=== PATIENT | female | born 1975 | race Caucasian/White ===

== ENCOUNTER 2021-12-31 13:31 | Outpatient (CLI) | payer OTHER, SELFPAY | END 2021-12-31 13:32 | disposition home or self-care (01) | LOC: WOUND 13:31 | PROVIDERS: PCP Family Medicine; Visit Provider Nurse Practitioner Family | DX: L03.115 Cellulitis of right lower limb (principal); L97.222 Non-pressure chronic ulcer of left calf with fat layer exposed | CPT/HCPCS: 99203; J0696 ==

== ENCOUNTER 2021-12-31 15:09 | Outpatient (CLI) | payer OTHER, SELFPAY | END 2021-12-31 15:10 | disposition home or self-care (01) | LOC: LAB 15:10 | PROVIDERS: PCP Family Medicine; Visit Provider Nurse Practitioner Family | DX: L97.222 Non-pressure chronic ulcer of left calf with fat layer exposed (principal); L03.116 Cellulitis of left lower limb; Z72.0 Tobacco use | CPT/HCPCS: 11042; 87070; 87186; 96372; 99203; J0696 ==

== ENCOUNTER 2022-01-07 11:00 | Outpatient (CLI) | payer OTHER, SELFPAY | END 2022-01-07 11:01 | disposition home or self-care (01) | PROVIDERS: PCP Family Medicine; Visit Provider Nurse Practitioner Family | DX: L03.116 Cellulitis of left lower limb (principal); L97.222 Non-pressure chronic ulcer of left calf with fat layer exposed | CPT/HCPCS: 11042 ==

== ENCOUNTER 2022-01-14 13:05 | Outpatient (CLI) | payer OTHER, SELFPAY | END 2022-01-14 13:06 | disposition home or self-care (01) | LOC: WOUND 13:05 | PROVIDERS: PCP Family Medicine; Visit Provider Nurse Practitioner Family | DX: L03.116 Cellulitis of left lower limb (principal); L97.222 Non-pressure chronic ulcer of left calf with fat layer exposed | CPT/HCPCS: 11042 ==

== ENCOUNTER 2022-01-21 13:33 | Outpatient (CLI) | payer OTHER, SELFPAY | END 2022-01-21 13:34 | disposition home or self-care (01) | LOC: WOUND 13:33 | PROVIDERS: PCP Family Medicine; Visit Provider Nurse Practitioner Family | DX: L03.116 Cellulitis of left lower limb (principal); Z72.0 Tobacco use | CPT/HCPCS: 11042 ==

== ENCOUNTER 2022-02-05 13:45 | Outpatient (CLI) | payer OTHER, SELFPAY | END 2022-02-05 13:46 | disposition home or self-care (01) | LOC: WOUND 13:45 | PROVIDERS: PCP Family Medicine; Visit Provider Surgery | DX: L03.116 Cellulitis of left lower limb (principal) | CPT/HCPCS: 97597 ==

== ENCOUNTER 2022-02-11 09:58 | Outpatient (CLI) | payer OTHER, SELFPAY | END 2022-02-11 09:59 | disposition home or self-care (01) | PROVIDERS: PCP Family Medicine; Visit Provider Nurse Practitioner Family | DX: L03.116 Cellulitis of left lower limb (principal); T81.31XA Disruption of external operation (surgical) wound, not elsewhere classified, initial encounter | CPT/HCPCS: 11042 ==

== ENCOUNTER 2022-02-25 13:33 | Outpatient (CLI) | payer OTHER, SELFPAY | END 2022-02-25 13:34 | disposition home or self-care (01) | LOC: WOUND 13:33 | PROVIDERS: PCP Family Medicine; Visit Provider Nurse Practitioner Family | DX: T81.31XA Disruption of external operation (surgical) wound, not elsewhere classified, initial encounter (principal); L97.222 Non-pressure chronic ulcer of left calf with fat layer exposed | CPT/HCPCS: 99212 ==

== ENCOUNTER 2022-10-22 14:30 | Inpatient (IN) | payer OTHER, SELFPAY ==
[2022-10-22 14:36] VITALS: BP 129/86; PULSE 86; RESP 16; TEMP 36.7; O2SAT 97; BMI 22.3
--- NOTE | 2022-10-22 15:02 | ED_ITS ---
HPI - Abdominal Pain General Chief Complaint: Abdominal Pain Stated Complaint: Abdominal pain Time Seen by Provider: 10/22/22 14:31 History of Present Illness HPI narrative: This 47-year-old female comes in with upper epigastric pain that comes and goes over the past couple days. She states that at times the pain is rather severe and then it can go away. Currently she is not feeling any pain. She was at clinic earlier today with the same complaint and did receive a prescription for Prilosec. She has taken 1 of these tablets. There was no lab or imaging studies done at that time. Prior to this she has been in good health. She does not report any nausea or vomiting and is not particularly certain that food is triggering these symptoms. She states that she has not eaten much however partly because of these symptoms. She does not report any fevers. Related Data Home Medications Medication Instructions Recorded Confirmed Prilosec OTC 10/22/22 Tums 10/22/22 albuterol sulfate 90 mcg/actuation 1 - 2 puff inhalation Q6H PRN 10/22/22 10/22/22 aerosol inhaler budesonide-formoterol HFA 160 inhalation 10/22/22 mcg-4.5 mcg/actuation aerosol inhaler (Symbicort) hydrochlorothiazide 50 mg tablet 50 mg PO DAILY 10/22/22 10/22/22 metoprolol succinate 25 mg 25 mg PO DAILY 10/22/22 10/22/22 tablet,extended release 24 hr montelukast 10 mg tablet 10 mg PO QPM 10/22/22 10/22/22 potassium chloride 20 mEq 20 meq PO DAILY 10/22/22 10/22/22 tablet,extended release trazodone 50 mg tablet 100 mg PO QPM PRN 10/22/22 10/22/22 Allergies Allergy/AdvReac Type Severity Reaction Status Date / Time amoxicillin [From Augmentin] AdvReac Vomiting Verified 10/22/22 14:41 clavulanic acid AdvReac Vomiting Verified 10/22/22 14:41 [From Augmentin] Review of Systems Status of ROS Reports: 10 or more systems reviewed and unremarkable except as noted in History and below Narrative Constitutional: No fevers, no weight gain or loss. Eyes: No discharge. No vision changes. HENT: No congestion, no sore throat, no ear pain. Cardiovascular: No chest pain, no palpitations. Respiratory: No shortness of breath, no wheezes, no cough. Gastrointestinal: No vomiting, no diarrhea. Upper epigastric abdominal pain that comes and goes. Genitourinary: No dysuria, no hematuria. Musculoskeletal: Normal range of motion. Skin: No rashes, no pruritis. Neurological: No dizziness, weakness, sensory change, speech change. Endo/Heme/Allergies: No bruising or bleeding. No polydipsia. Pysch: no suicidality, no anxiety, no insomnia. All other systems reviewed and are negative. [facility] Social History Smoking Status: Current every day smoker What tobacco products do you use: cigarettes Do you use any of these nicotine containing products: None How often do you have a drink containing alcohol: 4 or more times a week How many standard drinks containing alcohol do you have on a typical day: 3 or 4 AUDIT-C Alcohol total score: 5 Non-prescribed substance use: denies use Exam Narrative: Exam Narrative: Constitutional: Well-developed, well-nourished, no acute distress. HEENT: Normocephalic, atraumatic. Neck: Normal range of motion. Nontender. Supple. Heart: Regular. No murmurs. Normal rate. Intact distal pulses. Lungs: Clear to auscultation. No chest discomfort. No wheezes, rhonchi, or rales. Abdomen: Normal bowel sounds. Nontender. No rebound tenderness. Genitalia: Deferred. Back: No midline tenderness. Normal range of motion. Extremities: Normal range of motion. No injury. Skin: Intact. No rash. Warm. No erythema or pallor. Neurologic: No altered sensation. No weakness. Alert and oriented. Psychiatric: No suicidality. No anxiety or depression. No insomnia. Nursing notes and vitals signs are reviewed. Const: Vital Signs, click to edit/add: Vital Signs - 24 hr 10/22/22 14:36 10/22/22 17:57 Temperature 98.0 F Pulse Rate [Left P ulse Oximeter] 86 89 Respiratory Rate 16 20 Blood Pressure [Ri ght Upper Arm] 129/86 134/89 Pulse Oximetry 97 98 Oxygen Delivery Me thod Room Air Room Air Course Vital Signs Vital signs: Initial Vital Signs Temperature 98.0 F 10/22/22 14:36 Temperature Source Temporal Artery Scan 10/22/22 14:36 Pulse Rate 86 10/22/22 14:36 Respiratory Rate 16 10/22/22 14:36 Blood Pressure 129/86 10/22/22 14:36 Blood Pressure Mean 100 10/22/22 14:36 Blood Pressure Position Sitting 10/22/22 14:36 Pulse Oximetry 97 10/22/22 14:36 Oxygen Delivery Method Room Air 10/22/22 14:36 Vital Signs Temperature 98.0 F 10/22/22 14:36 Pulse Rate 86 10/22/22 14:36 Respiratory Rate 16 10/22/22 14:36 Blood Pressure 129/86 10/22/22 14:36 Pulse Oximetry 97 10/22/22 14:36 Oxygen Delivery Method Room Air 10/22/22 14:36 Temperature 98.0 F 10/22/22 14:36 Pulse Rate 89 10/22/22 17:57 Respiratory Rate 20 10/22/22 17:57 Blood Pressure 134/89 10/22/22 17:57 Pulse Oximetry 98 10/22/22 17:57 Oxygen Delivery Method Room Air 10/22/22 17:57 MDM - Abdominal Pain MDM Narrative Medical decision making narrative: This patient comes in with intermittent but sometimes severe upper epigastric abdominal pain. I did use bedside ultrasound and saw normal appearing gallbladder. An IV was established and labs are acquired which returned with essentially normal findings. Her electrolytes are a bit off. CT imaging interestingly returns with evidence of a small-bowel obstruction. The patient's symptoms are not classic for an obstruction but clearly there is some evidence of a transition point in the right abdomen. I spoke with the surgeon on-call, Dr. Gamble, who recommends admission into the hospital. She will come to visit her in the emergency department and make these arrangements including if a gastrogaffin small-bowel follow-through study. Lab Data Labs: Lab Results 10/22/22 10/22/22 Range/Units 14:48 15:40 WBC 13.14 H (4.50-11.00) K/uL RBC 4.65 (4.00-5.20) m/uL Hgb 15.4 (12.0-16.0) gm/dL Hct 44.0 (33.0-51.0) % MCV 95 (80-100) fL MCH 33 (26-34) pg MCHC 35 (32-36) gm/dL RDW Coeff of Stephen 11.1 L (11.5-15.5) % Plt Count 476 H (140-440) K/uL Neut % (Auto) 78.2 H (42.0-72.0) % Lymph % (Auto) 14.6 L (20-44) % Vermillion % (Auto) 4.9 (0.0-11.0) % Eos % (Auto) 1.8 (0.0-7.0) % Baso % (Auto) 0.4 (0.0-3.0) % Neut # (Auto) 10.30 H (1.7-7.0) K/uL Lymph # (Auto) 1.90 (0.90-2.90) K/uL [place]illion # (Auto) 0.60 (0.00-0.90) K/UL Eos # (Auto) 0.20 (0.00-0.50) K/uL Baso # (Auto) 0.10 (0.00-0.30) K/uL Sodium 130 L (135-149) mmol/L Potassium 3.2 L (3.6-5.1) mmol/L Chloride 90 L (96-114) mmol/L Carbon Dioxide 26 (20-32) mmol/L BUN 10 (5-24) mg/dL Creatinine 0.7 (0.5-1.5) mg/dL Estimated Creat Clear 93.01 Estimated GFR 107 ml/min Glucose 105 (60-115) mg/dL Calcium 9.7 (8.4-10.6) mg/dL Total Bilirubin 1.1 (0.1-1.5) mg/dL Direct Bilirubin 0.1 (0.0-0.5) mg/dL AST 39 H (12-35) U/L ALT 36 H (4-35) U/L Alkaline Phosphatase 69 (40-150) U/L Total Protein 7.4 (6.0-8.3) g/dL Albumin 4.9 (3.3-5.0) g/dL Lipase 80 (23-300) U/L Urine Color Yellow (Yellow) Urine Appearance Clear (Clear) Urine pH 6.0 (5.0-8.5) Ur Specific Slater 1.025 (1.000-1.030) Urine Protein Negative (Negative) Urine Glucose (UA) Negative (Negative) Urine Ketones 1+ A (Negative) Urine Blood Trace-lysed A (Negative) Urine Nitrite Negative (Negative) Urine Bilirubin Negative (Negative) Urine Urobilinogen 0.2 (0.2-1.0) Ur Leukocyte Esterase Trace A (Negative) Urine RBC 0-2 (0-2) Urine WBC 2-5 (0-5) Ur Squamous Epith Cells Moderate A (None-Few) Urine Bacteria Few A (None) Imaging Data CT scan - abdomen: Radiologist's impression: 1. Mid to distal small bowel obstruction. The point of transition appears to be in the right lower quadrant. A segment of narrowing is noted probably a stricture measuring about 5 centimeters. No intramural air, free-air, or collection. Free fluid in the pelvis is likely reactive to the small bowel obstruction 2. There is a 6.5 millimeter gallbladder abnormality which is probably a polyp. Consider sonography for further characterization at a clinically appropriate time. 3. IUD normally located. Myomatous uterus. Discharge Plan Discharge Clinical Impression: Small bowel obstruction Patient Disposition: Admitted As Inpatient Procedures Ultrasound Biliary exam #1: Anatomical areas examined: gallbladder, long and short axis and common bile duct Indications: RUQ/epigastric pain Exam type: limited abdominal ultrasound; RUQ Impression: normal exam Description/Findings: Normal appearing gallbladder, liver, and right kidney.
[2022-10-22 15:03] LABS: Appearance Urine Clear (Clear); Bilirubin Urine Negative (Negative); Blood Urine Trace-lysed (Negative); Color Urine Yellow (Yellow); Glucose Urine Negative (Negative); Ketones Urine 1+ (Negative); Leukocyte Esterase Urine Trace (Negative); Nitrite Urine Negative (Negative); Protein Urine Negative (Negative); Specific Gravity Urine 1.025 (1.000-1.030); Urobilinogen Urine 0.2 (0.2-1.0)
[2022-10-22 15:10] LABS: Bacteria Urine Few; RBC Urine 0-2 (0-2); Squamous Epithelial Cell Urine Moderate (None-Few)
--- NOTE | 2022-10-22 15:21 | CRLHL7_ITS ---
For Patients: As a result of the 21st Century Cures Act, medical imaging exams and procedure reports are released immediately into your electronic medical record. You may view this report before your referring provider. If you have questions, please contact your health care provider. INDICATION: Epigastric pain that extends down to the waist level COMPARISON: None TECHNIQUE: CT examination of the abdomen and pelvis was performed following the uneventful intravenous administration of 68 cc of Isovue 370. Thin section axial images were obtained from the lung bases through the pubic symphysis. Oral contrast was not administered. Please note that all CT scans at this facility use dose modulation, iterative reconstruction, and/or weight-based dosing when appropriate to reduce radiation dose to as low as reasonably achievable. FINDINGS: LUNG BASES: The lung bases as visualized appear normal.The heart size is normal at the lung bases. LIVER/BILIARY SYSTEM:The liver is normal in size and configuration. There is no focal mass and there is no intra- or extra hepatic biliary ductal dilatation.Hyperdense focus arising from the superior aspect of the gallbladder. This is best seen on coronal image 37 and measures about 6.5 millimeters. I favor a polyp over a noncalcified adherent calculus. Consider further characterization by sonography at a clinically appropriate time. ADRENALS: Normal KIDNEYS, URETERS and BLADDER:The kidneys appear normal. No visible mass, calculus or hydronephrosis. The ureters and bladder as visualized appear normal. SPLEEN:Normal appearance. PANCREAS: Appears normal. RETROPERITONEUM and MESENTERY: There is no mass, adenopathy or aortic aneurysm. GASTROINTESTINAL SYSTEM: Abnormally dilated small bowel with air-fluid levels consistent with a small-bowel obstruction. This is a mid to distal small bowel obstruction though portions of distal most small bowel are of normal caliber. This appears to be due to a segment of narrowing, probably a stricture in the right lower quadrant best seen on coronal images 35 through 41. This measures about 5 centimeters in length. The colon is overall unremarkable. No intramural air, free air or collection. PELVIS: Mild free fluid in the pelvis likely related to obstruction. IUD normally located. Sub serosal myoma measuring 3.9 centimeters. OSSEOUS STRUCTURES and ABDOMINAL WALL: There is an age-appropriate appearance of the osseous structures.No significant abdominal wall defect. OTHER: No free fluid or free air. IMPRESSION: 1. Mid to distal small bowel obstruction. The point of transition appears to be in the right lower quadrant. A segment of narrowing is noted probably a stricture measuring about 5 centimeters. No intramural air, free-air, or collection. Free fluid in the pelvis is likely reactive to the small bowel obstruction 2. There is a 6.5 millimeter gallbladder abnormality which is probably a polyp. Consider sonography for further characterization at a clinically appropriate time. 3. IUD normally located. Myomatous uterus. Please note that all CT scans at this facility use dose modulation, iterative reconstruction, and/or weight-based dosing when appropriate to reduce radiation dose to as low as reasonably achievable. Dictated by Mervin Kumar MD @ 10/22/2022 5:13:56 PM (Electronically Signed)
[2022-10-22 15:56] LABS: Basophils Percent Auto 0.4 % (0.0-3.0); Eosinophils Percent Auto 1.8 % (0.0-7.0); Hemoglobin* 15.4 gm/dL (12.0-16.0); Immature Granulocytes Pct Auto 0.1 %; Lymphocytes Percent Auto 14.6 % (20-44); Mean Corpuscular HGB Conc 35 gm/dL (32-36); Mean Corpuscular Hemoglobin 33 pg (26-34); Mean Corpuscular Volume 95 fL (80-100); Monocytes Percent Auto 4.9 % (0.0-11.0); Neutrophils Percent Auto 78.2 % (42.0-72.0); Platelet Count* 476 K/uL (140-440); RDW Coefficient of Variation % 11.1 % (11.5-15.5); Red Blood Count 4.65 m/uL (4.00-5.20); White Blood Count* 13.14 K/uL (4.50-11.00)
[2022-10-22 15:58] LABS: Slide Review Reflex No
[2022-10-22 16:13] LABS: Albumin* 4.9 g/dL (3.3-5.0); Chloride* 90 mmol/L (96-114)
[2022-10-22 16:14] LABS: Potassium* 3.2 mmol/L (3.6-5.1); Sodium* 130 mmol/L (135-149)
[2022-10-22 16:16] LABS: Carbon Dioxide* 26 mmol/L (20-32); Creatinine* 0.7 mg/dL (0.5-1.5); Est. Creatinine Clearance* 93.01; Estimated Glomerular Filt Rate 107 ml/min
[2022-10-22 16:17] LABS: Alanine Aminotransferase* 36 U/L (4-35); Alkaline Phosphatase* 69 U/L (40-150); Aspartate Amino Transferase* 39 U/L (12-35); Bilirubin Direct* 0.1 mg/dL (0.0-0.5); Bilirubin Total* 1.1 mg/dL (0.1-1.5); Blood Urea Nitrogen* 10 mg/dL (5-24); Calcium* 9.7 mg/dL (8.4-10.6); Glucose* 105 mg/dL (60-115); Lipase* 80 U/L (23-300); Total Protein* 7.4 g/dL (6.0-8.3)
[2022-10-22 17:57] VITALS: BP 134/89; PULSE 89; RESP 20; O2SAT 98
--- NOTE | 2022-10-22 18:33 | PM.GSCN ---
History of Present Illness Consult details Date Seen: 10/22/22 Consult date: 10/22/22 Narrative: Patient presented to the emergency department today with worsening, intermittent cramping abdominal pain. She states that started yesterday around 445. The pain does come and go in waves. She does think that the pain has gotten worse over the last 24 hours. In between episodes she feels completely normal. She has never had anything like this before. She does report a decreased appetite and some nausea, no emesis. She is unsure if she has passed any gas but she has had diarrhea since yesterday. Her last bowel movement was here in the emergency department. She feels distended in her abdomen. She is an everyday smoker. Her abdominal surgical history is positive for laparoscopic procedure when she was a teenager. She is otherwise healthy. She does play volleyball in admits to using ibuprofen almost on a daily basis over the last few weeks because of this. Review of Systems Status of ROS: Reports: 6 or more systems reviewed and unremarkable except as noted in History and below PFSH PFSH Social History Smoking Status: Current every day smoker What tobacco products do you use: cigarettes Do you use any of these nicotine containing products: None How often do you have a drink containing alcohol: 4 or more times a week How many standard drinks containing alcohol do you have on a typical day: 3 or 4 AUDIT-C Alcohol total score: 5 Non-prescribed substance use: denies use Meds Home Medications and Allergies Home Medications Medication Instructions Recorded Confirmed Type Prilosec OTC 10/22/22 History Tums 10/22/22 History albuterol sulfate 90 mcg/actuation 1 - 2 puff inhalation Q6H PRN 10/22/22 10/22/22 History aerosol inhaler budesonide-formoterol HFA 160 inhalation 10/22/22 History mcg-4.5 mcg/actuation aerosol inhaler (Symbicort) hydrochlorothiazide 50 mg tablet 50 mg PO DAILY 10/22/22 10/22/22 History metoprolol succinate 25 mg 25 mg PO DAILY 10/22/22 10/22/22 History tablet,extended release 24 hr montelukast 10 mg tablet 10 mg PO QPM 10/22/22 10/22/22 History potassium chloride 20 mEq 20 meq PO DAILY 10/22/22 10/22/22 History tablet,extended release trazodone 50 mg tablet 100 mg PO QPM PRN 10/22/22 10/22/22 History Allergies Allergy/AdvReac Type Severity Reaction Status Date / Time amoxicillin [From Augmentin] AdvReac Vomiting Verified 10/22/22 14:41 clavulanic acid AdvReac Vomiting Verified 10/22/22 14:41 [From Augmentin] Exam Narrative: Exam Narrative: General: Alert and oriented, no acute distress. Nontoxic in appearance. Respiratory: Equal breath rise bilaterally, maintained on room air CV: Regular rhythm rate, well perfused abdomen: Mild distention, soft, mild epigastric tenderness to deep palpation with no guarding or rebound. No signs of peritonitis. Const: Vital Signs, click to edit/add: Vital Signs - 24 hr 10/22/22 14:36 10/22/22 17:57 Temperature 98.0 F Pulse Rate [Left P ulse Oximeter] 86 89 Respiratory Rate 16 20 Blood Pressure [Ri ght Upper Arm] 129/86 134/89 Pulse Oximetry 97 98 Oxygen Delivery Me thod Room Air Room Air Results Labs Labs: Abnormal lab results 10/22/22 10/22/22 Range/Units 14:48 15:40 WBC 13.14 H (4.50-11.00) K/uL RDW Coeff of Stephen 11.1 L (11.5-15.5) % Plt Count 476 H (140-440) K/uL Neut % (Auto) 78.2 H (42.0-72.0) % Lymph % (Auto) 14.6 L (20-44) % Neut # (Auto) 10.30 H (1.7-7.0) K/uL Sodium 130 L (135-149) mmol/L Potassium 3.2 L (3.6-5.1) mmol/L Chloride 90 L (96-114) mmol/L AST 39 H (12-35) U/L ALT 36 H (4-35) U/L Urine Ketones 1+ A (Negative) Urine Blood Trace-lysed A (Negative) Ur Leukocyte Esterase Trace A (Negative) Ur Squamous Epith Cells Moderate A (None-Few) Urine Bacteria Few A (None) Diabetes panel 10/22/22 Range/Units 15:40 Sodium 130 L (135-149) mmol/L Potassium 3.2 L (3.6-5.1) mmol/L Chloride 90 L (96-114) mmol/L Carbon Dioxide 26 (20-32) mmol/L BUN 10 (5-24) mg/dL Creatinine 0.7 (0.5-1.5) mg/dL Glucose 105 (60-115) mg/dL Calcium 9.7 (8.4-10.6) mg/dL AST 39 H (12-35) U/L ALT 36 H (4-35) U/L Alkaline Phosphatase 69 (40-150) U/L Total Protein 7.4 (6.0-8.3) g/dL Albumin 4.9 (3.3-5.0) g/dL Calcium panel 10/22/22 Range/Units 15:40 Calcium 9.7 (8.4-10.6) mg/dL Albumin 4.9 (3.3-5.0) g/dL Pituitary panel 10/22/22 Range/Units 15:40 Sodium 130 L (135-149) mmol/L Potassium 3.2 L (3.6-5.1) mmol/L Chloride 90 L (96-114) mmol/L Carbon Dioxide 26 (20-32) mmol/L BUN 10 (5-24) mg/dL Creatinine 0.7 (0.5-1.5) mg/dL Glucose 105 (60-115) mg/dL Calcium 9.7 (8.4-10.6) mg/dL Adrenal panel 10/22/22 Range/Units 15:40 Sodium 130 L (135-149) mmol/L Potassium 3.2 L (3.6-5.1) mmol/L Chloride 90 L (96-114) mmol/L Carbon Dioxide 26 (20-32) mmol/L BUN 10 (5-24) mg/dL Creatinine 0.7 (0.5-1.5) mg/dL Glucose 105 (60-115) mg/dL Calcium 9.7 (8.4-10.6) mg/dL Total Bilirubin 1.1 (0.1-1.5) mg/dL AST 39 H (12-35) U/L ALT 36 H (4-35) U/L Alkaline Phosphatase 69 (40-150) U/L Total Protein 7.4 (6.0-8.3) g/dL Albumin 4.9 (3.3-5.0) g/dL All other labs normal. Imaging Abdomen CT scan report/results: report reviewed and image reviewed Assessment and Plan Assessment and plan (1) Small bowel obstruction: Status: Acute Plan Patient presents with intermittent cramping abdominal pain. Vital signs stable in the emergency department. Labs demonstrate evidence of leukocytosis ( 13). BMP shows some mild hyponatremia, hypokalemia and hypochloridemia. CT scan was obtained which demonstrates a mid to distal small-bowel obstruction. There is a point of transition in the right lower quadrant with segmental narrowing, concerning for possible strictured segment. Some free fluid is also present within the pelvis. On exam patient is mildly tender to deep palpation, no guarding or rebound and no evidence of peritonitis. She had some diarrhea in the emergency department today. Clinical workup consistent with partial small-bowel obstruction. This is likely secondary to a strictured segment versus scar tissue versus small-bowel mass. Recommend that patient be admitted for observation overnight. Will keep her NPO and plan for a small-bowel follow-through tomorrow morning. - NPO, IV fluids . Okay for sips of fluid with p.o. meds. - Move restart [employer]INUOUS [employer]ESS [employer] meds: Hydrochlorothiazide, metoprolol and trazodone - IV pain meds, use sparingly - encourage ambulation - please call with any increased nausea or abdominal pain, would consider placing an NG tube in this situation - SCDs for DVT prophylaxis please call on-call surgery for any acute clinical changes, questions or concerns.
[2022-10-22] MEDS: NICOTINE 21 MG PATCH 1 PATCH TRANSDERMA (19:08)
--- NOTE | 2022-10-22 19:10 | ED.NURSE ---
Patient declined to change into gown.
--- NOTE | 2022-10-22 19:57 | ED.NURSE ---
Report to [facility]. TO room 277 via wheelchair.
[2022-10-22 20:00] VITALS: BP 146/88; PULSE 90; RESP 16; TEMP 36.8; O2SAT 99
[2022-10-22] MEDS: LACTATED RINGERS 1000 ML 1,000 ML 100 ML IV (20:28)
[2022-10-22 20:52] VITALS: BP 146/88; PULSE 90; RESP 16; TEMP 36.8; O2SAT 99; BMI 22.0
[2022-10-22] MEDS: HYDROmorphone 0.5 mg/0.5 ml inj IVP (21:00)
[2022-10-22] MEDS: TRAZODONE HCL 50 MG TABLET 100 MG PO (22:57)
[2022-10-22 23:00] VITALS: BP 117/81; PULSE 80; RESP 16; TEMP 36.6; O2SAT 98
--- NOTE | 2022-10-22 23:28 | PC.NURSE ---
End of shift: Arrived to the floor at 1999. A&O. Up at obie. VSS and sats >90% on RA. Bowel sounds hypoactive and abdomen is tender on palpation. Rating pain 4-9/10, PRN dilated given. Pt stated adequate relief. Partial dose of PRN trazodone given per pt request. Pt stated they only take 25mg at home which is different that the 100mg ordered. Verified w/ snow plow tractor operator before administration of the 25mg.
[2022-10-23] MEDS: HYDROmorphone 0.5 mg/0.5 ml inj IVP ×5 (02:18→21:27)
[2022-10-23 03:00] VITALS: BP 112/76; PULSE 66; RESP 16; O2SAT 95
[2022-10-23] MEDS: LACTATED RINGERS 1000 ML 1,000 ML 100 ML IV ×2 (05:16→17:24)
--- NOTE | 2022-10-23 05:28 | PC.NURSE ---
Addendum entered and electronically signed by Екатерина Cho RN 10/23/22 05:38: Patient reporting feeling the need to use her PRN Pro-air inhaler, states that she has asthma and the air quality has been affecting her. Patient's brought inhaler from home. Myles called and new order for patient to self administer inhaler and ok to keep at bedside. Original Note: Alert and oriented x 4. Pain to abdomen rating at 4/10 consistently with waves of pain going up to 9/10. Patient describes pain as cramping and then sharp shooting pains. Bowel sounds hypoactive in right lower quadrant and active in all other quadrants. NPO. At 0215 patient pushed call light and was reporting nausea and severe pain to abdomen. Patinet holding stomach and rolling side to side in bed, face pale and diaphoretic. Dilaudid 0.5mg given via IV with effective pain relief reached by 0315. Denies any lightheadedness after medication administration. Q-easy applied for nausea, Myles called and new order for zofran PRN. Supervisor [employer] checked in with patient and nausea resolved with pain resolving. Small loose stool this shift. Patient ambulates independently.
[2022-10-23 06:46] LABS: Basophils Absolute Auto 0.05 K/uL (0.00-0.30); Basophils Percent Auto 0.5 % (0.0-3.0); Eosinophils Absolute Auto 0.24 K/uL (0.00-0.50); Eosinophils Percent Auto 2.2 % (0.0-7.0); Hematocrit 39.3 % (33.0-51.0); Hemoglobin* 13.7 gm/dL (12.0-16.0); Immature Granulocytes Abs Auto 0.02 K/uL (0.00-0.30); Immature Granulocytes Pct Auto 0.2 %; Lymphocytes Percent Auto 15.8 % (20-44); Mean Corpuscular HGB Conc 35 gm/dL (32-36); Mean Corpuscular Hemoglobin 33 pg (26-34); Mean Corpuscular Volume 96 fL (80-100); Neutrophils Percent Auto 74.3 % (42.0-72.0); Platelet Count* 411 K/uL (140-440); RDW Coefficient of Variation % 11.2 % (11.5-15.5); Red Blood Count 4.11 m/uL (4.00-5.20); White Blood Count* 10.83 K/uL (4.50-11.00)
[2022-10-23 07:02] LABS: Chloride* 97 mmol/L (96-114); Sodium* 132 mmol/L (135-149)
[2022-10-23 07:03] LABS: Potassium* 3.4 mmol/L (3.6-5.1)
[2022-10-23 07:05] LABS: Carbon Dioxide* 27 mmol/L (20-32); Creatinine* 0.7 mg/dL (0.5-1.5); Est. Creatinine Clearance* 93.01; Estimated Glomerular Filt Rate 107 ml/min
[2022-10-23 07:06] LABS: Blood Urea Nitrogen* 10 mg/dL (5-24); Glucose* 80 mg/dL (60-115)
[2022-10-23 07:19] LABS: Slide Review Reflex No
[2022-10-23 07:31] VITALS: BP 114/75; PULSE 89; RESP 16; TEMP 36.7; O2SAT 95
--- NOTE | 2022-10-23 07:31 | CRLHL7_ITS ---
For Patients: As a result of the Century Cures Act, medical imaging exams and procedure reports are released immediately into your electronic medical record. You may view this report before your referring provider. If you have questions, please contact your health care provider. INDICATION: Small-bowel obstruction. Distal ileal stricture. TECHNIQUE : Fluoroscopically guided water soluble small-bowel follow-through. FINDINGS: There are numerous centrally located mildly dilated small bowel loops throughout the abdomen and upper pelvis. When correlated with yesterday`s abdominal pelvic CT there has been a clear improvement. There are however still mildly dilated small bowel loops throughout the abdomen. Contrast does reach the terminal ileum and cecum by approximately 2 to 2-1/2 hours after beginning the examination. Detailed fluoroscopic evaluation demonstrates that there is decreased to small bowel peristalsis but not absent peristalsis. There is a questionable area of mild narrowing within the distal ileum. This could be transient. This does not appear to be a david stricture. Additionally there is residual contrast throughout the stomach toward the end of the examination which is abnormal. When the clinical picture allows, consider a formal complete small-bowel follow-through utilizing barium. IUD. Calcified left froylan pelvic phlebolith. 3 minutes fluoroscopy time utilized. These findings were discussed in detail with the patient with Dr. Sonia Gamble. IMPRESSION: Resolving small bowel obstruction when correlated with yesterday`s abdominal pelvic CT. Narrowing within the distal ileum may be transient but there is not a david stricture. A formal small-bowel follow-through is recommended when the clinical picture allows. Dictated by Silver Mckinney MD @ 10/23/2022 2:11:24 PM (Electronically Signed)
[2022-10-23] MEDS: hydroCHLOROthiazide 25 MG TABLET 50 MG PO (09:01)
[2022-10-23] MEDS: METOPROLOL SUCCINATE (XL) 25 MG TAB PO (09:01)
[2022-10-23 10:52] VITALS: BP 122/94; PULSE 73; RESP 18; TEMP 36.4; O2SAT 98
[2022-10-23] MEDS: ONDANSETRON 2 MG/ML inj 4 MG IVP ×2 (12:43→21:29)
--- NOTE | 2022-10-23 14:14 | PM.GSPN ---
Subjective Subjective Date Seen: 10/23/22 Interval history: Patient overall is doing okay today. She did pass some gas and had some diarrhea this morning and this afternoon. Last night she had severe cramping abdominal pain, which was helped with IV pain medication. Today her pain was initially doing better. She did have some abdominal pain, nausea and vomiting when she drank the contrast for the abdominal x-ray study. She denies any persistent nausea. Exam Narrative: Exam Narrative: General: Alert and oriented, no acute distress Abdomen: Soft, mild diffuse tenderness to palpation with no guarding or rebound. Nondistended. Const: Vital Signs, click to edit/add: Vital Signs - 24 hr 10/22/22 14:36 10/22/22 17:57 10/22/22 20:00 Temperature 98.0 F 98.2 F Pulse Rate [Left P ulse Oximeter] 86 89 Pulse Rate [Pulse Oximeter] 90 Respiratory Rate 16 20 16 Blood Pressure [Ri ght Arm] 146/88 H Blood Pressure [Ri ght Upper Arm] 129/86 134/89 Pulse Oximetry 97 98 99 Oxygen Delivery Me thod Room Air Room Air Room Air 10/22/22 20:52 10/22/22 23:00 10/23/22 03:00 Temperature 98.2 F 97.9 F Pulse Rate [Left P ulse Oximeter] Pulse Rate [Pulse Oximeter] 90 80 66 Respiratory Rate 16 16 16 Blood Pressure [Ri ght Arm] 146/88 H 117/81 112/76 Blood Pressure [Ri ght Upper Arm] Pulse Oximetry 99 98 95 Oxygen Delivery Me thod Room Air Room Air Room Air 10/23/22 07:31 10/23/22 07:31 10/23/22 10:52 Temperature 98.0 F 97.6 F Pulse Rate [Left P ulse Oximeter] Pulse Rate [Pulse Oximeter] 89 73 Respiratory Rate 16 16 18 Blood Pressure [Ri ght Arm] 114/75 122/94 H Blood Pressure [Ri ght Upper Arm] Pulse Oximetry 95 98 Oxygen Delivery Me thod Room Air Room Air Labs/Imaging Labs Labs: Leukocytosis has resolved. Electrolytes are starting to improved towards normal. Imaging Imaging: Small bowel follow-through was performed. Images and radiology report reviewed. Progress Note: A&P Assessment and plan (1) Small bowel obstruction: Status: Acute Assessment and Plan: Patient is hospital day 2. For partial small-bowel obstruction. She has had some return of bowel function, but is also reporting persistent abdominal pain and intermittent nausea. A Gastrografin small-bowel follow-through was performed, which demonstrates continued dilation of the small bowel, although improved when compared to the CT scan. There is noted narrowing within the distal ileum, but no david stricture seen. At this time will continue with conservative management. Will plan to get an abdominal x-ray tomorrow morning to confirm contrast within the colon. Patient is okay to have some clear liquids today, NPO at midnight. She was encouraged to ambulate. Given her diarrhea will also perform stool studies to rule out any infection.
--- NOTE | 2022-10-23 14:25 | CRLHL7_ITS ---
For Patients: As a result of the Century Cures Act, medical imaging exams and procedure reports are released immediately into your electronic medical record. You may view this report before your referring provider. If you have questions, please contact your health care provider. INDICATION: Follow up partial small bowel obstruction. Evaluate continued passage of contrast status post small-bowel follow-through. TECHNIQUE: Single portable view of the abdomen. COMPARISON : Correlation is made with the small-bowel follow-through images performed earlier on the same date. FINDINGS: Contrast in the right hemicolon and throughout the small bowel. Residual contrast in the stomach. There are still several mildly distended small bowel loops clearly improved when correlated with the CT October 22, 2022. IMPRESSION: Resolving small bowel obstruction. Dictated by Silver Mckinney MD @ 10/23/2022 3:30:02 PM (Electronically Signed)
[2022-10-23 14:35] VITALS: BP 113/81; PULSE 68; RESP 16; TEMP 36.6; O2SAT 97
--- NOTE | 2022-10-23 16:43 | PC.NURSE ---
Pt alert and oriented. Pt IND in room. VSS. Pt is on a clear liquid diet until midnight when she then changes back to NPO. Pt has had pain ranging from 2-9. See EMAR for intervention. Pt had nausea and vomiting at 1245. See EMAR for intervention. Pt did start passing gas early afternoon. Pt tired and attempted to nap throughout shift with interruptions. Pt had a nicotine patch on right shoulder during shift and will be replaced before end of shift (1900).?
[2022-10-23] MEDS: NICOTINE 21 MG PATCH 1 PATCH TRANSDERMA (18:21)
[2022-10-23 20:05] VITALS: BP 128/87; PULSE 79; RESP 16; TEMP 36.7; O2SAT 97
[2022-10-23] MEDS: TRAZODONE HCL 50 MG TABLET 100 MG PO (21:41)
[2022-10-23 23:00] VITALS: BP 126/75; PULSE 77; RESP 16; TEMP 36.6; O2SAT 96
[2022-10-24 02:15] VITALS: BP 110/73; PULSE 71; RESP 14; TEMP 36.6; O2SAT 96
[2022-10-24] MEDS: LACTATED RINGERS 1000 ML 1,000 ML 100 ML IV (04:37)
[2022-10-24 07:00] VITALS: BP 104/80; PULSE 85; RESP 20; TEMP 36.8; O2SAT 94
[2022-10-24 07:12] LABS: Basophils Absolute Auto 0.05 K/uL (0.00-0.30); Basophils Percent Auto 0.6 % (0.0-3.0); Eosinophils Percent Auto 7.2 % (0.0-7.0); Hematocrit 38.8 % (33.0-51.0); Hemoglobin* 13.5 gm/dL (12.0-16.0); Immature Granulocytes Abs Auto 0.01 K/uL (0.00-0.30); Immature Granulocytes Pct Auto 0.1 %; Lymphocytes Absolute Auto 2.18 K/uL (0.90-2.90); Lymphocytes Percent Auto 24.8 % (20-44); Mean Corpuscular HGB Conc 35 gm/dL (32-36); Mean Corpuscular Hemoglobin 34 pg (26-34); Mean Corpuscular Volume 97 fL (80-100); Monocytes Percent Auto 9.1 % (0.0-11.0); Neutrophils Absolute Auto 5.13 K/uL (1.7-7.0); Neutrophils Percent Auto 58.2 % (42.0-72.0); Platelet Count* 388 K/uL (140-440); RDW Coefficient of Variation % 11.1 % (11.5-15.5); Red Blood Count 4.02 m/uL (4.00-5.20)
[2022-10-24 07:16] LABS: Chloride* 96 mmol/L (96-114)
[2022-10-24 07:17] LABS: Potassium* 3.3 mmol/L (3.6-5.1); Sodium* 133 mmol/L (135-149)
[2022-10-24 07:19] LABS: Creatinine* 0.7 mg/dL (0.5-1.5); Est. Creatinine Clearance* 93.01; Estimated Glomerular Filt Rate 107 ml/min; Slide Review Reflex No
[2022-10-24 07:20] LABS: Blood Urea Nitrogen* 10 mg/dL (5-24); Calcium* 8.9 mg/dL (8.4-10.6); Carbon Dioxide* 29 mmol/L (20-32); Glucose* 76 mg/dL (60-115)
--- NOTE | 2022-10-24 07:31 | PC.NURSE ---
Pt alert and oriented x3, Afebrile. Pt reports 7/10 pain in abdomen, pain managed with?PRN medications. Pt denies chest pain, SOB, and N/V. Pt is up Ind, and voiding. Pt has been NPO since 0000. Pt slept intermittently throughout night.?
--- NOTE | 2022-10-24 09:03 | CRLHL7_ITS ---
For Patients: As a result of the Century Cures Act, medical imaging exams and procedure reports are released immediately into your electronic medical record. You may view this report before your referring provider. If you have questions, please contact your health care provider. INDICATION: Follow up small bowel obstruction. Evaluate for passage of contrast. TECHNIQUE: Single supine view of the abdomen and pelvis. FINDINGS: Minimal residual contrast is identified within portions of the colon including the rectum. Previously there was contrast in the stomach but that is no longer the case although please note the stomach is not fully or optimally included. There are still a few mildly distended centrally located small bowel loops. IUD in the pelvis. IMPRESSION: Passage of contrast into the colon with only minimal contrast remaining today. Dictated by Silver Mckinney MD @ 10/24/2022 9:38:35 AM (Electronically Signed)
[2022-10-24] MEDS: hydroCHLOROthiazide 25 MG TABLET 50 MG PO (09:14)
[2022-10-24] MEDS: METOPROLOL SUCCINATE (XL) 25 MG TAB PO (09:15)
--- NOTE | 2022-10-24 11:09 | P.DS_ITS ---
DS: Providers Provider Date Seen: 10/24/22 Date of admission: 10/23/22 13:39 Primary care physician: Eduardo Anguiano MD Admitting Clinician: Sonia Gamble MD Attending Physician on discharge: Sonia Gamble MD DS: Summary Hospital Course Hospital Course: Patient presented to the hospital with intermittent abdominal pain. Workup was obtained with CT scan demonstrating a partial small-bowel obstruction. Patient was admitted and treated with conservative management. A Gastrografin small- bowel follow-through was performed, which did not demonstrate any obvious stricture and showed contrast going into the colon. At the time of discharge the patient was tolerating a diet, pain was no longer present, she was ambulating without difficulty and she was having bowel movements. Time Spent with Patient Time attestation: Total time spent providing and/or coordinating discharge services: Exam Narrative: Exam Narrative: General: Alert and oriented, no acute distress Respiratory: Equal breath rise bilaterally, maintained on room air CV: Regular rhythm rate Abdomen: Soft, nondistended and nontender to palpation. Const: Vital Signs, click to edit/add: Vital Signs - 24 hr 10/23/22 14:35 10/23/22 20:05 10/23/22 23:00 Temperature 97.8 F 98.0 F Pulse Rate [Pulse Oximeter] 68 79 77 Respiratory Rate 16 16 16 Blood Pressure [Ri ght Arm] 113/81 128/87 Pulse Oximetry 97 97 Oxygen Delivery Me thod Room Air Room Air 10/23/22 23:00 10/24/22 02:15 10/24/22 07:00 Temperature 97.9 F 97.9 F 98.2 F Pulse Rate [Pulse Oximeter] 77 71 85 Respiratory Rate 16 14 20 Blood Pressure [Ri ght Arm] 126/75 110/73 104/80 Pulse Oximetry 96 96 94 Oxygen Delivery Me thod Room Air Room Air Room Air 10/24/22 07:00 Temperature Pulse Rate [Pulse Oximeter] 85 Respiratory Rate 20 Blood Pressure [Ri ght Arm] Pulse Oximetry Oxygen Delivery Me thod DS: Data Data Completed and Pending Labs on day of discharge: Labs from last 24 hours 10/24/22 06:36 WBC 8.80 RBC 4.02 Hgb 13.5 Hct 38.8 MCV 97 MCH 34 MCHC 35 RDW Coeff of Stephen 11.1 L Plt Count 388 Neut % (Auto) 58.2 Lymph % (Auto) 24.8 [place] % (Auto) 9.1 Eos % (Auto) 7.2 H Baso % (Auto) 0.6 Neut # (Auto) 5.13 Lymph # (Auto) 2.18 [place] # (Auto) 0.80 Eos # (Auto) 0.60 H Baso # (Auto) 0.05 Sodium 133 L Potassium 3.3 L Chloride 96 Carbon Dioxide 29 BUN 10 Creatinine 0.7 Estimated Creat Clear 93.01 Estimated GFR 107 Glucose 76 Calcium 8.9 Preliminary micro results at discharge 10/22/22 Unknown Urine Culture - Preliminary Urine,Clean Catch < 50,000 COL/ML MIXED GRAM POSITIVE [place] ISOLATED NO FURTHER WORKUP Discharge Plan Discharge Disposition: Home, Self-Care Date of Admission: 10/23/22 13:39 Attending Provider on Discharge: Sonia Gamble Primary Care Provider: Eduardo Anguiano Condition: Improved Anticipated Discharge Date/Time: 10/24/22 11:06 Discharge Medications: Continued trazodone 50 mg tablet 100 mg PO HS PRN hydrochlorothiazide 50 mg tablet 50 mg PO DAILY montelukast 10 mg tablet 10 mg PO HS metoprolol succinate 25 mg tablet extended release 24 hr 25 mg PO DAILY albuterol sulfate 90 mcg/actuation HFA aerosol inhaler 1 - 2 puff INHALATION Q6H PRN budesonide-formoterol [Symbicort] 160-4.5 mcg/actuation HFA aerosol inhaler 2 puff inhalation TID potassium chloride 20 mEq tablet extended release 20 meq PO DAILY omeprazole 20 mg capsule,delayed release(DR/EC) 20 mg PO DAILY Antacid Calcium 215 mg calcium (500 mg) tablet,chewable 430 mg PO BID PRN lorazepam 0.5 mg tablet 0.5 mg PO Q4H PRN (Reason: anxiety) ibuprofen [Advil] 200 mg tablet 600 mg PO Q6H PRN Discharge Orders: Discharge Order (Routine); Ordered 10/24/22 Ordered By: Sonia Gamble Patient Education: Bowel Obstruction (DC) Additional Instructions: Continue with a bland diet for the next week. Avoid alcohol use. Please make an appointment to see her primary care provider after you have discharged home. Discharge Diet: Regular Follow Up Appointments: Eduardo Anguiano MD [Primary Care Provider] - [facility]
== END 2022-10-24 11:25 | disposition home or self-care (01) | DRG 390 ==
LOC: ED 18:46 → MEDSURG 19:57
PROVIDERS: Admitting Provider Surgery; Emergency Provider Emergency Medicine Emergency Medical Services; PCP Family Medicine; Visit Provider Surgery
DX: K56.600 Partial intestinal obstruction, unspecified as to cause (principal); F17.210 Nicotine dependence, cigarettes, uncomplicated
CPT/HCPCS: 36415; 74018; 74177; 74250; 76705; 80048; 80076; 81003; 81015; 83690; 85025; 87086; 99283; 99285; A9270; G0378; J1170; J2405; J7120; Q9967; S4990

== ENCOUNTER 2022-11-17 14:42 | Outpatient (CLI) | payer OTHER, SELFPAY ==
--- NOTE | 2022-11-17 14:11 | W.ANESCHARGE ---
Anesthesia Charges Start Date/Time Anesthesia Start Date: 11/17/22 Anesthesia Start Time: 15:36 Stop Date/Time Anesthesia Stop Date: 11/17/22 Anesthesia Stop Time: 16:02
--- NOTE | 2022-11-17 16:08 | W.ANESCHARGE ---
Anesthesia Charges Start Date/Time Anesthesia Start Date: 11/17/22 Anesthesia Start Time: 15:36 Stop Date/Time Anesthesia Stop Date: 11/17/22 Anesthesia Stop Time: 16:02
== END 2022-11-17 14:43 | disposition home or self-care (01) ==
LOC: OP CLINIC 14:43
PROVIDERS: PCP Family Medicine; Visit Provider Internal Medicine Gastroenterology
DX: R19.7 Diarrhea, unspecified (principal); K62.1 Rectal polyp; R93.3 Abnormal findings on diagnostic imaging of other parts of digestive tract; K63.89 Other specified diseases of intestine
CPT/HCPCS: 45380; 45385; 811; 812; 88305; J2704